=== PATIENT | female | born 1930 | race Caucasian/White ===

== ENCOUNTER 2016-12-10 10:22 | Emergency (ER) | payer BC ==
[~2016-12-10] VITALS: Ht 157.5 cm; Wt 59.1 kg
[~2016-12-10 10:22] MED LIST: AGGRENOX ER 251 CER PO; ASPIRIN 32325 MG/TAB PO; ASPIRIN 81M81 MG/TA2 PO; ATACAND8 MG PO; BACITRACIN TOPIC1 TU TOP; CALCIUM CITRAT950 MG PO; CARDIZEM CD 12120 MG PO; ELIQUIS 2.5 PO; FERRIMIN 150150 M1 PO; FOSAMAX 70MG TA70 MG PO; LIPITOR 40MG TA40 MG PO; NAPROXEN 3375 MG/TAB PO; NO HOME MEDICATIONS; NORCO 325 MG-51 TAB PO; PLAVIX 75MG TAB75 MG PO; PREDNISONE20 MG PO; PROTONIX 40MG T40 MG PO; SUPER B COMPLEX PO; TOPROL XL 50MG50 MG PO; VITAMIND3 5000 PO
[2016-12-10 10:34] VITALS: TEMP 100.4
[2016-12-10 10:47] LABS: BASO # 0.1 (0.0-0.2); BASO % 0.4 % (0.0-2.0); GRAN # 10.1 (1.4-6.5); GRAN % 88.9 % (42.2-75.2); HEMATOCRIT 35.4 % (37.0-47.0); HEMOGLOBIN 11.3 g/dl (12.5-16.0); LYMPH # 0.4 (1.2-3.4); LYMPH % 3.8 % (20.0-51.0); MEAN CELL VOLUME 80 fl (80.0-100.0); MEAN CORPUSCULAR HEMOGLOBIN 26 pg (27.0-31.0); MEAN CORPUSCULAR HGB CONC 32 g/dl (33.0-37.0); MONO # 0.7 (0.1-0.6); MONO % 6.5 % (1.7-9.3); PLATELET COUNT 166 K/mm3 (130-400); RED BLOOD COUNT 4.42 M/mm3 (4.10-5.30); REDCELL DISTRIBUTION WIDTH-CV 18.2 % (11.5-14.5); WHITE BLOOD COUNT 11.4 K/mm3 (4.8-10.8)
[2016-12-10 10:51] LABS: INR 1.7 (0.8-3.0); PROTHROMBIN TIME 19.4 SECONDS (9.7-12.8)
[2016-12-10 10:53] LABS: PARTIAL THROMBOPLASTIN TIME 29.2 SECONDS (26.0-37.0)
[2016-12-10 11:02] LABS: ADJUSTED CALCIUM 8.8 mg/dL (8.4-10.2); ALBUMIN 3.6 gm/dL (3.5-5.0); BILIRUBIN,TOTAL 0.9 mg/dL (0.0-1.0); CALCIUM 8.5 mg/dL (8.4-10.2); CREATININE, serum 1.29 mg/dL (0.52-1.25); POTASSIUM 3.3 mmol/L (3.4-5.0); TOTAL PROTEIN 6.9 gm/dL (6.4-8.2)
[2016-12-10] MEDS ORDERED: PREDNISONE1 MG PO (11:13)
[2016-12-10] MEDS ORDERED: CARDIZEM 30MG T30 MG PO (11:14)
[2016-12-10] MEDS ORDERED: COUMADIN 2MG2 MG/TAB PO (11:14)
[2016-12-10 11:15] LABS: TROPONIN-I 1.41 ng/mL (0.000-0.034)
[2016-12-10] MEDS ORDERED: LASIX 40MG TABL40 MG PO (11:15)
[2016-12-10] MEDS ORDERED: ASPIRIN 81M81 MG/TA2 PO (11:16)
[2016-12-10 11:46] LABS: PH 5 (5-8); SQUAMOUS EPITHELIAL None Seen /hpf; URINE APPEARANCE Hazy; URINE BACTERIA Rare /hpf; URINE BILIRUBIN Negative (NEGATIVE); URINE BLOOD 2+ (NEGATIVE); URINE COLOR Yellow; URINE GLUCOSE Negative (NEGATIVE); URINE KETONE Trace (NEGATIVE); URINE RBC >50 /hpf; URINE UROBILINOGEN Negative (NEGATIVE); URINE WBC 0-2 /hpf
[2016-12-10 12:30] VITALS: BP 82/66; PULSE 126
== END 2016-12-10 12:43 | disposition short-term general hospital (02) ==
LOC: COL.ER 10:22
PROVIDERS: Emergency Medicine
DX: I21.4 Non-ST elevation (NSTEMI) myocardial infarction (principal); J18.9 Pneumonia, unspecified organism; I48.91 Unspecified atrial fibrillation; I11.0 Hypertensive heart disease with heart failure; I50.9 Heart failure, unspecified; Z86.73 Personal history of transient ischemic attack (TIA), and cerebral infarction without residual deficits; E87.1 Hypo-osmolality and hyponatremia; E87.6 Hypokalemia
CPT/HCPCS: J0696; J1940; J7030; J7050